=== PATIENT | female | born 1975 | race Caucasian/White ===

== ENCOUNTER → 2021-01-22 | Outpatient (CLI) | payer OTHER ==
[~2021-01-22] MED LIST: BENTYL 20MG TAB20 MG PO; ZOFRAN ODT 4 MG4 MG PO
== END ==
LOC: KOH-I 16:13
DX: Z09 Encounter for follow-up examination after completed treatment for conditions other than malignant neoplasm (principal); Z87.39 Personal history of other diseases of the musculoskeletal system and connective tissue; M19.072 Primary osteoarthritis, left ankle and foot
CPT/HCPCS: 72202

== ENCOUNTER 2021-06-30 16:20 | Emergency (ER) | payer OTHER ==
[2021-06-30 20:04] LABS: RED BLOOD COUNT 4.42 M/UL (4.00-5.10); WHITE BLOOD COUNT 12.9 K/UL (4.5-11.0)
[2021-06-30 20:18] LABS: BUN/CREATININE RATIO 17 (0-10)
[2021-07-02 22:11] LABS: CHLAMYDIA TRACHOMATIS, NAA Negative (Negative); NEISSERIA GONORRHOEAE, NAA Negative (Negative)
== END 2021-07-01 02:10 | disposition home or self-care (01) ==
LOC: ER1 16:20
PROVIDERS: Emergency Medicine; Physician Assistant Medical
DX: U07.1 COVID-19 (principal); E07.9 Disorder of thyroid, unspecified
CPT/HCPCS: 71045; 80053; 81001; 83605; 85025; 96374; 99284; Q9967

== ENCOUNTER 2021-08-18 11:57 | Emergency (ER) | payer OTHER ==
[2021-08-18 12:39] LABS: HEMOGLOBIN 13.4 gm/dl (12.3-15.3); RED BLOOD COUNT 4.61 M/UL (4.00-5.10)
[2021-08-18 12:47] LABS: BUN/CREATININE RATIO 15 (0-10)
[2021-08-18] MEDS ORDERED: ZOFRAN ODT 4 MG4 MG SL (16:23)
== END 2021-08-18 17:00 | disposition home or self-care (01) ==
LOC: ER1 11:57
PROVIDERS: Emergency Medicine
DX: U07.1 COVID-19 (principal); Z23 Encounter for immunization; I10 Essential (primary) hypertension; Z90.89 Acquired absence of other organs; Z86.16 Personal history of COVID-19
CPT/HCPCS: 71045; 80053; 81001; 83605; 83690; 83735; 84100; 85025; 87040; 87081; 87086; 87880; 99283; J2405; M0243; U0002

== ENCOUNTER → 2021-11-01 | Outpatient (CLI) | payer OTHER ==
[~2021-11-01] MED LIST changes: +CELEBREX100 MG PO; +DEXILANT60 MG PO; +FLOVENT 220.1 GM/INH INH; +IBU800 MG PO; +LEVOTHYROXINE150 MCG PO; +LISINOPRIL20 MG PO; +TRAZODONE HCL100 MG PO; +VISTARIL 50 MG50 MG PO; +ZOFRAN ODT 4 MG4 MG SL; +ZYRTEC10 MG PO
== END ==
LOC: KOH-I 14:22
DX: M79.89 Other specified soft tissue disorders (principal)
CPT/HCPCS: 93970

== ENCOUNTER → 2021-11-06 | Day surgery (SDC) | payer OTHER ==
[~2021-11-06] MED LIST changes: +HYDROCODON-ACE1 EAC4 PO
[2021-11-06 11:24] LABS: HEMOGLOBIN 12.7 gm/dl (12.3-15.3); RED BLOOD COUNT 4.54 M/UL (4.00-5.10); WHITE BLOOD COUNT 9.4 K/UL (4.5-11.0)
[2021-11-06 11:43] LABS: BUN/CREATININE RATIO 24 (0-10)
== END | disposition home or self-care (01) ==
LOC: OR 10:33
PROVIDERS: Obstetrics & Gynecology
DX: N92.0 Excessive and frequent menstruation with regular cycle (principal); I10 Essential (primary) hypertension; K21.9 Gastro-esophageal reflux disease without esophagitis; F41.9 Anxiety disorder, unspecified; F41.0 Panic disorder [episodic paroxysmal anxiety]; E03.9 Hypothyroidism, unspecified; Z79.899 Other long term (current) drug therapy; Z79.1 Long term (current) use of non-steroidal anti-inflammatories (NSAID); Z20.822 Contact with and (suspected) exposure to COVID-19
CPT/HCPCS: 80053; 81001; 85025; 93005; J1100; J2001; J2250; J2405; J2704; J2795; J3010; J7120; U0002

== ENCOUNTER → 2021-11-13 | Outpatient (CLI) | payer OTHER | LOC: CT 14:32 | DX: I73.9 Peripheral vascular disease, unspecified (principal) | CPT/HCPCS: 75635; Q9967 ==